=== PATIENT | female | born 1950 | race Caucasian/White ===

== ENCOUNTER → 2024-06-05 | Outpatient (CLI) | payer OTHER ==
[~2024-06-05] MED LIST: ALEN70 PO; ASPI81CH PO; Amlodipine Bes2.5 MG PO; B-12500 MC2 PO; ERGO400 PO; EUTHYROX88 MCG PO; HYDCHL12.5 PO; LEVSOD50 PO; LISI20 PO; PROBIOTIC1 EA14 PO
[2024-06-06 12:26] LABS: Stool Occult Bld Immuno 1 Negative (NEGATIVE)
== END ==
LOC: LAB 10:30 → LAB SHORT 10:30
PROVIDERS: Physician Assistant
DX: Z12.11 Encounter for screening for malignant neoplasm of colon (principal)
CPT/HCPCS: G0328

== ENCOUNTER → 2025-03-17 | Outpatient (CLI) | payer OTHER | LOC: LAB 13:39 → LAB SHORT 13:39 | DX: N39.0 Urinary tract infection, site not specified (principal) | CPT/HCPCS: 87086 ==